=== PATIENT | male | born 1945 | race Caucasian/White ===

== ENCOUNTER → 2020-04-11 10:25 | Outpatient (CLI) | payer MEDICARE, SELFPAY ==
[2020-04-12 13:12] LABS: Covid-19 Nasal PCR Sendout Lex NOT DETECTED
== END ==
PROVIDERS: PCP Internal Medicine; Visit Provider Internal Medicine Adolescent Medicine
DX: Z03.818 Encounter for observation for suspected exposure to other biological agents ruled out (principal)
CPT/HCPCS: U0004